=== PATIENT | female | born 1955 | race Caucasian/White ===

== ENCOUNTER 2017-04-30 13:57 | Emergency (ER) | payer MEDICARE, OTHER ==
[2017-04-30 14:12] VITALS: BMI 19.3
[2017-04-30] MEDS ORDERED: SODIUM CHLORIDE 1,000 ML IV STA (15:00)
--- NOTE | 2017-04-30 15:04 | PDOC ---
History of Present Illness - General History Source: Patient, Family Exam Limitations: No Limitations - History of Present Illness Initial Comments: 04/30/17 15:06 The patient is a 61 year old female with a significant past medical history of anxiety, hypertension, and depression, presenting to the Emergency Department with intermittent left shoulder pain. The patient reports that she has had intermittent left shoulder pain for several years, which has become worse over the past couple months. She reports going to an Urgent Care center today, who referred her to the ED as they noted a pathological fracture of her left proximal humerus. She also admits to left hip pain for several years, for which she participated in PT. The patients significant other reports that she fell several years ago and had her shoulder in a sling. She also admits to some lightheadedness, resolved by sitting down. She denies any daily medications. The patient denies fever, cough, and chills. Patient denies nausea, vomiting, and diarrhea. Patient denies recent weight loss. Patient denies abdominal pain. Patient denies recent trauma, or fall. Familial Hx: mother and sister breast ca (last mammogram 1 year ago) Social Hx: history of alcohol abuse <Jud Hernandez - Last Filed: 04/30/17 18:04> - General History Source: Patient Exam Limitations: No Limitations <Vipin Schofield - Last Filed: 04/30/17 18:13> - General Chief Complaint: Pain, Acute Stated Complaint: LEFT SHOULDER PAIN Time Seen by Provider: 04/30/17 14:20 Past History <Jud Hernandez - Last Filed: 04/30/17 18:04> - Past Medical History HTN: Yes - Psycho/Social/Smoking Cessation Hx Anxiety: Yes Suicidal Ideation: No Smoking History: Former smoker Have you smoked in the past 12 months: No If you are a former smoker, when did you quit?: 10yrs Information on smoking cessation initiated: No Hx Alcohol Use: Yes (Socially) Drug/Substance Use Hx: No Substance Use Type: None <Vipin Schofield - Last Filed: 04/30/17 18:13> - Past Medical History Allergies/Adverse Reactions: Allergies Allergy/AdvReac Type Severity Reaction Status Date / Time No Known Allergies Allergy Verified 04/30/17 14:12 Home Medications: Ambulatory Orders Cyanocobalamin [Vitamin B12 -] 1,000 mcg PO DAILY 04/30/17 Multivitamin [Poly-Vitamin] 1 each PO DAILY 04/30/17 Review of Systems - Review of Systems Able to Perform ROS?: Yes Comments:: 04/30/17 15:06 CONSTITUTIONAL: No reported: Fever, Chills, Diaphoresis, Generalized Weakness, Malaise, Loss of Appetite HEENT: No reported: Rhinorrhea, Nasal Congestion, Throat Pain, Throat Swelling, Difficulty Swallowing, Mouth Swelling, Ear Pain, Eye Pain, Visual Changes CARDIOVASCULAR: No reported: Chest Pain, Syncope, Palpitations, Irregular Heart Rate, Lightheadedness, Peripheral Edema RESPIRATORY: No reported: Cough, Shortness of Breath, SOB with Exertion, Orthopnea, Wheezing , Stridor, Hemoptysis GASTROINTESTINAL: No reported: Abdominal pain, Abdominal Distension, Nausea, Vomiting, Diarrhea, Constipation, Melena, Hematochezia GENITOURINARY: No reported: Dysuria, Frequency, Urgency, Hesitancy, Flank Pain, Genital Pain MUSCULOSKELETAL: Reported: + left shoulder pain, + left humerus fracture, + left hip pain No reported: Myalgia, Joint Swelling, Back pain, Neck Pain SKIN: No reported: Rash, Itching, Pallor HEMATOLOGIC/IMMUNOLOGIC: No reported: Easy Bleeding, Easy Bruising, Lymphadenopathy, Frequent infections ENDOCRINE: No reported: Unexplained Weight Gain, Unexplained Weight Loss, Heat Intolerance , Cold Intolerance NEUROLOGIC: Reported: + lightheadedness No reported: Headache, Focal Weakness, Paresthesias, Vertigo, Unsteady Gait, Seizure, Mental Status Changes, Incontinence PSYCHIATRIC: No reported: Depression <Jud Hernandez - Last Filed: 04/30/17 18:04> *Physical Exam - Vital Signs Last Vital Signs Temp Pulse Resp BP Pulse Ox 97.8 F 108 H 16 111/69 97 04/30/17 14:02 04/30/17 14:02 04/30/17 14:02 04/30/17 14:02 04/30/17 14:45 - Physical Exam Comments: 04/30/17 15:07 GENERAL: The patient is awake, alert, and fully oriented, Nontoxic - in no acute distress. HEAD: Normocephalic, atraumatic. EYES: extraocular movements intact, sclera anicteric, conjunctiva clear. ENT: Normal voice, Moist mucous membranes. NECK: Normal range of motion, No JVD LUNGS: Breath sounds equal, clear to auscultation bilaterally. No wheezes, no rhonchi, no rales. HEART: Regular rate and rhythm, normal S1 and S2 without murmur, rub or gallop. ABDOMEN: Soft, nontender, normoactive bowel sounds. No guarding, no rebound. No masses. No CVA tenderness EXTREMITIES: Tenderness to palpation over the anterior and posterior aspect of the left shoulder. ROM limited secondary to pain. Sensation intact throughout. 2 + radial pulses. Sensation intact over the deltoid, medial, radial, and ulnar nerve. Left hip tenderness to palpation. Normal ROM to right shoulder. No edema. No clubbing or cyanosis. No cords, or erythema. NEUROLOGICAL: No facial asymmetry, Normal speech, normal gait. PSYCH: Normal mood, normal affect. SKIN: Warm, Dry, normal turgor. <Jud Hernandez - Last Filed: 04/30/17 18:04> - Vital Signs Last Vital Signs Temp Pulse Resp BP Pulse Ox 97.8 F 108 H 16 111/69 97 04/30/17 14:02 04/30/17 14:02 04/30/17 14:02 04/30/17 14:02 04/30/17 14:45 <Vipin Schofield - Last Filed: 04/30/17 18:13> ED Treatment Course - LABORATORY CBC & Chemistry Diagram: 04/30/17 15:00 04/30/17 15:00 - RADIOLOGY Radiograph Interpretation: 04/30/17 17:[address] As reviewed by Dr. Arron Martin IMPRESSION: No definite CT evidence of metastatic neoplastic disease is identified. A2cm complex left renal cortical cyst is noted which is quite likely benign. Mild chronic L2 vertebral body compression fracture. Chest CT As reviewed by Dr. Arron Martin IMPRESSION: No definite CT evidence of neoplastic disease is identified. Chronic ununited proximal left humeral fracture. Multilevel healed left-sided rib fractures. Multilevel thoracic vertebral body compression fractures with appear chronic. Head CT As reviewed by Dr. Arron Martin IMPRESSION: No discrete mass lesion is identified. 04/30/17 18:[address] As reviewed by Dr. Arron Martin IMPRESSION: Chronic ununited proximal left humeral head fracture. No CT evidence of neoplastic disease. <Jud Hernandez - Last Filed: 04/30/17 18:04> - LABORATORY CBC & Chemistry Diagram: 04/30/17 15:00 04/30/17 15:00 - RADIOLOGY Radiology Studies Ordered: Category Date Time Status ABDOMEN & PELVIS CT WITH CONTR [CT] Stat CT Scan 04/30/17 14:[address] WITH CONTRAST [CT] Stat CT Scan 04/30/17 14:[address] WITHOUT CONTRAST [CT] Stat CT Scan 04/30/17 14:[address] W/O CONTR [CT] Stat CT Scan 04/30/17 14:56 Ordered <Vipin Schofield - Last Filed: 04/30/17 18:13> Medical Decision Making - Medical Decision Making 04/30/17 15:02 A portion of this note was documented by scribe services under my direction. I have reviewed the details of the note, within reason, and agree with the documentation with the following case summary and management plan written by me. Patient treated in the ED. Nursing notes are reviewed and incorporated into the medical decision-making. Vital signs reviewed. Peripheral IV access obtained by the nurse, laboratory studies are drawn and sent, reviewed and interpreted by myself. Vital Signs Temp Pulse Resp BP Pulse Ox 97.8 F 108 H 16 111/69 97 04/30/17 14:02 04/30/17 14:02 04/30/17 14:02 04/30/17 14:02 04/30/17 14:45 61-year-old female with history of hypertension, not on medications, history of prior alcohol abuse sent in from her primary care's office for pathologic left fracture. Patient has been having intermittent left shoulder pain for years that has progressively worsened the last month. She had an x-ray performed today which did report noted pathological fracture of the left proximal humerus. Patient was sent to the ED for further evaluation. She is also been complaining about several months of left hip pain. Denies recent weight loss or weight changes. Denies fevers or sweats. Given the pathologic fracture, we'll need to investigate for malignancy. We'll obtain a CAT scan of the chest abdomen pelvis as well as left upper extremity. We'll obtain labs to rule out hypercalcemia secondary to cancer. Patient declines any pain medications at this time. 04/30/17 18:09 CBC, BMP 04/30/17 15:00 04/30/17 15:00 CMP Sodium 135 mmol/L (136-145) L 04/30/17 15:00 Potassium 4.6 mmol/L (3.5-5.1) 04/30/17 15:00 Chloride 99 mmol/L (98-107) 04/30/17 15:00 Carbon Dioxide 26 mmol/L (21-32) 04/30/17 15:00 Anion Gap 10 (8-16) 04/30/17 15:00 BUN 26 mg/dL (7-18) H D 04/30/17 15:00 Creatinine 0.9 mg/dL (0.55-1.02) 04/30/17 15:00 Creat Clearance w eGFR > 60 (>60) 04/30/17 15:00 Random Glucose 85 mg/dL (74-106) 04/30/17 15:00 Calcium 8.9 mg/dL (8.5-10.1) 04/30/17 15:00 Total Bilirubin 0.4 mg/dL (0.2-1.0) 04/30/17 15:00 AST 54 U/L (15-37) H D 04/30/17 15:00 ALT 60 U/L (12-78) D 04/30/17 15:00 Alkaline Phosphatase 59 U/L (45-117) D 04/30/17 15:00 Total Protein 7.0 g/dl (6.4-8.2) 04/30/17 15:00 Albumin 3.8 g/dl (3.4-5.0) 04/30/17 15:00 Patient's CAT scan demonstrated no malignant lesions. There is a chronic left proximal humerus fracture in addition to chronic findings in her thoracic spine. Patient has known back history. We'll give referral to orthopedist. Patient feels reassured that this is not malignancy. Patient is given results of hemoglobin 9.0 instructed to follow-up with her doctor in regards anemia. Patient verbalizes understand agrees plan. I discussed the physical exam findings, ancillary test results and final diagnoses with the patient. I answered all of the patient's questions. The patient was satisfied with the care received and felt comfortable with the discharge plan and treatment plan. The patient will call their primary care physician within 24 hours to arrange follow-up and will return to the Emergency Department with any new, persistant or worsening symptoms. <Vipin Schofield - Last Filed: 04/30/17 18:13> *DC/Admit/Observation/Transfer - Attestations Scribe Attestion: 04/30/17 15:09 Documentation prepared by Jud Hernandez, acting as medical technologist clinical for Vipin Schofield MD. <Jud Hernandez - Last Filed: 04/30/17 18:04> - Discharge Dispostion Admit: No <Vipin Schofield - Last Filed: 04/30/17 18:13> Diagnosis at time of Disposition: Back pain Qualifiers: Back pain location: thoracic back pain Chronicity: chronic Back pain laterality : midline Qualified Code(s): M54.6 - Pain in thoracic spine Shoulder pain, left Qualifiers: Chronicity: chronic Qualified Code(s): M25.512 - Pain in left shoulder - Discharge Dispostion Disposition: HOME Condition at time of disposition: Stable - Referrals Referrals: Kevin Vazquez MD [Primary Care Provider] - Giovanni Collado MD [Staff Physician] - Benjamin Mcallister MD [Staff Physician] - Jaiden Pittman MD [Staff Physician] - - Patient Instructions Printed Discharge Instructions: Anemia, DI for Shoulder Fracture, DI for Low Back Pain Additional Instructions: Your CT scans showed no evidence of cancer. You do have a chronic left shoulder fracture and chronic thoracic pain. Please make an appointment with an orthopedist. Your hemoglobin is 9.0. Please follow up with your doctor in regards to your anemia.
[2017-04-30 15:09] LABS: BASOPHIL 0.7 % (0-2.0); EOSINOPHIL 3.1 % (0-4.5); MCH 35.3 pg (25.7-33.7); MCHC 33.8 g/dl (32.0-36.0); MEAN CELL VOLUME 104.4 fl (80-96); MEAN PLT VOLUME 7.4 fl (7.5-11.1); NEUTROPHILS 57.5 % (42.8-82.8); PLATELET COUNT 204 K/MM3 (134-434); RDW 13.8 % (11.6-15.6); WHITE BLOOD COUNT 4.6 K/mm3 (4.0-10.0)
[2017-04-30 16:02] LABS: ALBUMIN 3.8 g/dl (3.4-5.0); ALK PHOS 59 U/L (45-117); ANION GAP 10 (8-16); BILIRUBIN,TOTAL 0.4 mg/dL (0.2-1.0); CALCIUM 8.9 mg/dL (8.5-10.1); CO2 26 mmol/L (21-32); CREATININE 0.9 mg/dL (0.55-1.02); GLUCOSE,RANDOM 85 mg/dL (74-106); SGOT/AST 54 U/L (15-37); SGPT/ALT 60 U/L (12-78)
[2017-04-30 18:39] VITALS: BP 129/83; PULSE 89; TEMP 98.7
== END 2017-04-30 18:20 | disposition home or self-care (01) ==
LOC: JER 13:57
PROC: 3E0337Z Introduction of Electrolytic and Water Balance Substance into Peripheral Vein, Percutaneous Approach (ICD-10-PCS; principal; 2017-04-30)
DX: M54.6 Pain in thoracic spine (principal); M84.412 Pathological fracture, left shoulder; I10 Essential (primary) hypertension; F41.9 Anxiety disorder, unspecified; F32.9 Major depressive disorder, single episode, unspecified
CPT/HCPCS: 36415; 70450-TC; 71260-TC; 73200-TC-RT; 74177-TC; 80053; 85025; 96360; 99284-25